=== PATIENT | female | born 1955 | race Caucasian/White ===

== ENCOUNTER → 2018-11-27 | Outpatient (CLI) | payer MEDICARE ==
[~2018-11-27] MED LIST: CLAR500T3 PO; DIAZ5TAB PO; FLUT16SP2 PO; FLUT1DIS3 INH; GUAI-103 PO; HYDR25TA6 PO; LANS15CA60 PO; LOSA50TA14 PO; METO1TAB18 PO; METO25TA35 PO; MONT10TA9 PO; PSYL0.5215 PO; REGADENOSON 0.4 MG/5 ML SYRINGE ONE; TIOT18CA INH; [UNRECOGNIZED DRUG - REMARK]
== END | disposition home or self-care (01) ==
LOC: CFH 12:23
PROVIDERS: ATTEND Internal Medicine Cardiovascular Disease
DX: I10 Essential (primary) hypertension (principal); I48.0 Paroxysmal atrial fibrillation
CPT/HCPCS: 78452; 93017; A9502; J2785